=== PATIENT | male | born 1975 | race Caucasian/White ===

== ENCOUNTER 2019-02-12 19:31 | Inpatient (IN) | payer OTHER ==
[~2019-02-12] VITALS: Ht 167.6 cm; Wt 54.0 kg
[~2019-02-12 19:31] MED LIST: AMLO5TAB4 PO; FOLI-49 PO; METO10TA92 PO; POTA-57 PO; TRA100 PO
[2019-02-12 22:03] VITALS: Ht 167.6 cm; Wt 54.0 kg
[2019-02-12 22:30] VITALS: BP 135/93; PULSE 106; RESP 20
[2019-02-12] MEDS ORDERED: ONDANSETRON 4 MG INJ IV PRN (23:30)
[2019-02-12] MEDS ORDERED: POTASSIUM CHLORIDE 100 ML IVPB SCH (23:30)
[2019-02-12] MEDS ORDERED: ACETAMINOPHEN 325 MG TAB PO PRN (23:30)
[2019-02-13] MEDS: HYDROCODONE/APAP (5/325) TAB PO PRN ×5 (00:03→23:02)
[2019-02-13] MEDS: LORAZEPAM 2 MG INJ IV PRN ×4 (00:04→23:02)
[2019-02-13] MEDS ORDERED: POTASSIUM CHLORIDE (SR) 20 MEQ TAB PO STA ×3 (00:47→08:56)
[2019-02-13 03:35] VITALS: BP 146/100; PULSE 94; RESP 20
[2019-02-13] MEDS: PANTOPRAZOLE (EC) 40 MG TAB PO SCH (05:25)
[2019-02-13 07:19] VITALS: BP 137/83; PULSE 94; RESP 20
[2019-02-13] MEDS ORDERED: MULTIVITAMINS 10 ML, THIAMINE 100 MG, FOLIC ACID 1 MG in SOD CHLORIDE 0.9% 1,000 ML IVPB SCH (09:00)
[2019-02-13] MEDS: NICOTINE (21 MG/24 HR) PATCH TRANSDERM SCH (09:48)
[2019-02-13] MEDS: CHLORDIAZEPOXIDE 25 MG CAP PO SCH ×3 (09:48→20:54)
[2019-02-13] MEDS: THIAMINE 100 MG TAB PO SCH (09:49)
[2019-02-13] MEDS: FOLIC ACID 1 MG TAB PO SCH (09:49)
[2019-02-13] MEDS: POTASSIUM CHLORIDE 100 ML IVPB SCH ×4 (09:49→23:00)
[2019-02-13] MEDS: MULTIVITAMINS 10 ML, THIAMINE 100 MG, FOLIC ACID 1 MG in SOD CHLORIDE 0.9% 1,000 ML IVPB SCH (10:10)
[2019-02-13 11:06] VITALS: BP 149/103; PULSE 94; RESP 20
--- NOTE | 2019-02-13 12:53 | QN ---
Documentation Comment pt seen and examined BECKY LOMBARDI MD Feb 13, 2019 12:53
[2019-02-13 15:18] VITALS: BP 144/97; PULSE 94; RESP 20
[2019-02-13] MEDS ORDERED: MAGNESIUM SULFATE 4 GM/100 ML 100 ML IVPB ONE (17:30)
[2019-02-13] MEDS: MAGNESIUM OXIDE 400 MG TAB PO SCH (17:44)
[2019-02-13 19:45] VITALS: BP 140/97; PULSE 84; RESP 20
--- NOTE | 2019-02-13 20:37 | HP ---
DATE OF ADMISSION: 02/12/2019 REASON FOR ADMISSION: Transferred from [facility] due to hypokalemia and alcoholism. HISTORY OF PRESENT ILLNESS: This is a 43-year-old male who lives in his car, was sent in from [facility] secondary to hypokalemia. According to the patient, he had a history of alcohol abuse for many years. He claims that he has drank alcohol throughout his life, drinks 1 pint of vodka every day. He has had 3 alcohol withdrawal seizures. According to him, he had a seizure on this last Monday and after that he fell on his right shoulder and right side. He was feeling weak, tired. He also had some episodes of diarrhea and went to [facility] for further evaluation. There, patient had a potassium that was 2.4, sodium of 147. UA was normal, showed 6 to 10 WBCs. ETOH levels were 464. The patient had an x-ray of the clavicle that showed nondisplaced right david fracture. Potassium was 2.4. EKG did not show any hyperkalemic changes. The patient was given IV hydration, IV KCl, and was transferred to [facility] due to insurance reasons. PAST MEDICAL HISTORY: 1. History of alcohol abuse. 2. Smoking. 3. Hypertension. ALLERGIES: KETOROLAC AND THALLIUM. PAST SURGICAL HISTORY: NONE. SOCIAL HISTORY: The patient drinks about almost 1 pint of vodka every day, has done throughout his life. Also, has 1 packet of cigarette day. Denies any recreational drug use. The patient lives in his car. Does not believe in AA groups. PHYSICAL EXAMINATION: VITAL SIGNS: Currently, blood pressure 149/103, afebrile, heart rate is 94, respirations 20. GENERAL: The patient is awake, alert, oriented, does not appear to in any acute distress, mildly tremulous. HEENT: Pupils equal, round, reactive to light. NECK: Supple. HEART: Regular rate, rhythm. LUNGS: Clear to auscultate bilaterally. ABDOMEN: Soft, some tenderness present in the epigastric region. EXTREMITIES: No clubbing, cyanosis, or edema. The patient has bruises on the right hip and also on the right shoulder. LABORATORY DATA: Here showed sodium of 142, potassium 2.8, chloride 98, bicarbonate 31, BUN of 3, creatinine 0.43. White count of 7, hemoglobin 11.6, platelet count 264. The patient had an x-ray of the clavicle that showed nondisplaced right clavicle fracture. No change from 02/05/2019. EKG did not show any changes. ASSESSMENT AND PLAN: This is a 43-year-old male who presented with: 1. Severe hypokalemia, likely secondary to dehydration, diarrhea. 2. Ethanol intoxication. Monitor for withdrawal. Currently, the patient is mildly tremulous. Ethanol levels were 460. 3. Right clavicle fracture status post fall, seizure. 4. Multiple bruises on the right hip, right shoulder, status post fall. 5. History of alcohol withdrawal seizure. 6. Hypertension. PLAN: At this period of time, the patient is admitted to tele. The patient will be on Ativan and Librium. We will start the patient also on banana bag, thiamine, folic acid, PPI. Potassium will be aggressively repleted. We will repeat the potassium again. Smoking cessation, nicotine patch. We will also get x-rays of the right hip and CT of the head. The rest of the treatment depends on the patient's hospitalization course. Dictated By: BECKY GARCIA/LESLY Conf#: [id number] DID#: [id number] MARTIR
[2019-02-13] MEDS ORDERED: traZODone 100 MG TAB PO SCH (22:00)
[2019-02-14] VITALS: BP 145/97; PULSE 78; RESP 20
[2019-02-14] MEDS ORDERED: POTASSIUM CHLORIDE (SR) 20 MEQ TAB PO SCH
[2019-02-14] MEDS: LORAZEPAM 2 MG INJ IV PRN ×4 (02:14→17:19)
[2019-02-14 04:00] VITALS: BP 126/85; PULSE 82; RESP 18
[2019-02-14] MEDS: PANTOPRAZOLE (EC) 40 MG TAB PO SCH (05:46)
[2019-02-14] MEDS: HYDROCODONE/APAP (5/325) TAB PO PRN ×2 (05:47→12:54)
[2019-02-14 07:22] VITALS: BP 123/76; PULSE 70; RESP 18
[2019-02-14] MEDS: NICOTINE (21 MG/24 HR) PATCH TRANSDERM SCH (09:11)
[2019-02-14] MEDS: CHLORDIAZEPOXIDE 25 MG CAP PO SCH ×2 (09:12→12:54)
[2019-02-14] MEDS: MAGNESIUM OXIDE 400 MG TAB PO SCH (09:12)
[2019-02-14] MEDS: THIAMINE 100 MG TAB PO SCH (09:14)
[2019-02-14] MEDS: FOLIC ACID 1 MG TAB PO SCH (09:14)
[2019-02-14] MEDS: MULTIVITAMINS 10 ML, THIAMINE 100 MG, FOLIC ACID 1 MG in SOD CHLORIDE 0.9% 1,000 ML IVPB SCH (09:15)
[2019-02-14 11:04] VITALS: BP 143/91; PULSE 69; RESP 18
[2019-02-14 15:12] VITALS: BP 118/83; PULSE 84; RESP 19
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
--- NOTE | 2019-02-16 07:57 | DS ---
DATE OF ADMISSION: 02/12/2019 DATE OF DISCHARGE: 02/14/2019 The patient left AMA. HISTORY OF PRESENT ILLNESS AND HOSPITAL COURSE: This is a 43-year-old who lives in the car was sent in from the [facility] secondary to hypokalemia. According to the patient, he has history o f alcohol abuse, many years, claimed that he had drank alcohol throughout his life. Drinks 1 pint of vodka every day. He had 3 alcohol withdrawal seizures before. He had a seizure on this Monday. Af ter that, he fell on his right shoulder, right side. He was also feeling weak and tired. He had kenny e diarrhea and went to [facility] for further evaluation. Patient had potassium of 2.4, sod ium 147, BUN and creatinine within normal limit. ETOH level of 464. The patient's potassium was 2.4 , so he was sent in for IV potassium replacement and possible alcohol withdrawal. The patient was tr eated with IV potassium aggressively and was also kept on Librium and Ativan. The patient had a CT o f the head which was negative. Had right shoulder x-ray that showed mildly displaced fracture of the right distal clavicle. Also, had a right hip x-ray. The patient was feeling much better. Potassiu m got improved to 4.2; however, the patient mag was 1.0, which was repleted; however, the patient lef t AMA. Dictated By: BECKY GARCIA/LESLY Conf#: [id number] DID#: [id number]
== END 2019-02-14 19:00 | disposition left against medical advice (07) | DRG 894 ==
LOC: TEL 22:03
PROVIDERS: ADMIT Internal Medicine; ATTEND Internal Medicine
DX: F10.239 Alcohol dependence with withdrawal, unspecified (principal); G40.509 Epileptic seizures related to external causes, not intractable, without status epilepticus; E87.6 Hypokalemia; F17.200 Nicotine dependence, unspecified, uncomplicated; S42.001A Fracture of unspecified part of right clavicle, initial encounter for closed fracture; I10 Essential (primary) hypertension; S70.01XA Contusion of right hip, initial encounter; S40.011A Contusion of right shoulder, initial encounter; W18.30XA Fall on same level, unspecified, initial encounter; Z59.0 Homelessness
CPT/HCPCS: 70450; 73510; 80048; 80076; 80307; 83735; 84100; 84132; 85025; 85610; 87081; J2060; J2405; J3411; J3480; J7030

== ENCOUNTER 2019-03-30 19:02 | Inpatient (IN) | payer OTHER ==
[~2019-03-30] VITALS: Ht 167.6 cm; Wt 53.4 kg
[~2019-03-30 19:02] MED LIST changes: +CIPR-193 PO; +FAMO20TA18 PO; +HYDR-4012 PO; +LORA-444 PO; +Nicotine (14 Mg/24 Hr) TRANSDERM
[2019-03-30 23:30] VITALS: Ht 167.6 cm; Wt 53.4 kg
[2019-03-31] MEDS ORDERED: ONDANSETRON 4 MG INJ IV PRN (01:30)
[2019-03-31] MEDS ORDERED: CALCIUM CARBONATE 500 MG CHEW TAB PO PRN (01:30)
[2019-03-31] MEDS: HYDROCODONE/APAP (7.5/325) TAB PO PRN ×3 (01:35→18:12)
[2019-03-31] MEDS: LORAZEPAM 2 MG INJ IV PRN ×2 (02:53→18:12)
[2019-03-31] MEDS: PANTOPRAZOLE (EC) 40 MG TAB PO SCH (07:03)
[2019-03-31 07:27] VITALS: BP 159/102; PULSE 72; RESP 19
[2019-03-31 08:00] VITALS: PULSE 77
[2019-03-31] MEDS ORDERED: POTASSIUM CHLORIDE (SR) 20 MEQ TAB PO STA (08:04)
[2019-03-31] MEDS: POTASSIUM CHLORIDE 100 ML IVPB SCH ×2 (08:30→10:30)
[2019-03-31 11:28] VITALS: BP 156/99; PULSE 82; RESP 22
[2019-03-31 12:00] VITALS: PULSE 83
[2019-03-31] MEDS ORDERED: HYDROCODONE/APAP (5/325) TAB PO PRN (13:30)
[2019-03-31] MEDS: SOD CHLORIDE 0.9% 1,000 ML IV SCH (14:27)
[2019-03-31] MEDS: FOLIC ACID 1 MG TAB PO SCH (14:28)
[2019-03-31] MEDS: LOSARTAN 50 MG TAB PO SCH (14:28)
[2019-03-31] MEDS: THIAMINE 100 MG TAB PO SCH (14:28)
[2019-03-31] MEDS: NICOTINE (14 MG/24 HR) PATCH TRANSDERM SCH (14:29)
[2019-03-31] MEDS: ENOXAPARIN 40 MG/0.4 ML SYG SC SCH (14:41)
[2019-03-31 15:12] VITALS: BP 136/90; PULSE 80; RESP 20
[2019-03-31 19:55] VITALS: BP 128/83; PULSE 89; RESP 18
[2019-03-31] MEDS: traZODone 50 MG TAB PO SCH (21:12)
[2019-03-31] MEDS: VALPROIC ACID LIQUID CUP 250 MG/5 ML CUP PO SCH (21:14)
[2019-04-01] MEDS: LORAZEPAM 2 MG INJ IV PRN ×4 (00:11→20:24)
[2019-04-01] MEDS: HYDROCODONE/APAP (7.5/325) TAB PO PRN ×4 (00:11→19:47)
[2019-04-01] MEDS: PANTOPRAZOLE (EC) 40 MG TAB PO SCH (06:57)
[2019-04-01 07:48] VITALS: BP 140/88; PULSE 93; RESP 20
[2019-04-01] MEDS: NICOTINE (14 MG/24 HR) PATCH TRANSDERM SCH (08:36)
[2019-04-01] MEDS: THIAMINE 100 MG TAB PO SCH (08:37)
[2019-04-01] MEDS: VALPROIC ACID LIQUID CUP 250 MG/5 ML CUP PO SCH ×2 (08:37→20:37)
[2019-04-01] MEDS: LOSARTAN 50 MG TAB PO SCH (08:38)
[2019-04-01] MEDS: FOLIC ACID 1 MG TAB PO SCH (08:38)
[2019-04-01] MEDS: ENOXAPARIN 40 MG/0.4 ML SYG SC SCH (09:12)
[2019-04-01] MEDS: POTASSIUM CHLORIDE 100 ML IVPB SCH ×2 (10:00→12:00)
[2019-04-01] MEDS ORDERED: POTASSIUM CHLORIDE (SR) 20 MEQ TAB PO STA (11:01)
[2019-04-01] MEDS: SOD CHLORIDE 0.9% 1,000 ML IV SCH ×2 (11:11→18:29)
[2019-04-01 15:20] VITALS: BP 177/104; RESP 20
[2019-04-01 18:30] VITALS: BP 160/96; PULSE 78; RESP 16
[2019-04-01 20:32] VITALS: BP 149/95; PULSE 82; RESP 19
[2019-04-02] MEDS: traZODone 50 MG TAB PO SCH (01:03)
[2019-04-02] MEDS: HYDROCODONE/APAP (7.5/325) TAB PO PRN ×3 (01:45→15:49)
[2019-04-02] MEDS: LORAZEPAM 2 MG INJ IV PRN ×3 (02:25→16:25)
[2019-04-02 02:44] VITALS: BP 173/95; PULSE 77; RESP 20
[2019-04-02] MEDS: PANTOPRAZOLE (EC) 40 MG TAB PO SCH (06:10)
[2019-04-02 08:09] VITALS: BP 142/93; PULSE 82; RESP 18
[2019-04-02] MEDS: VALPROIC ACID LIQUID CUP 250 MG/5 ML CUP PO SCH (09:41)
[2019-04-02] MEDS: THIAMINE 100 MG TAB PO SCH (09:41)
[2019-04-02] MEDS: NICOTINE (14 MG/24 HR) PATCH TRANSDERM SCH (09:42)
[2019-04-02] MEDS: FOLIC ACID 1 MG TAB PO SCH (09:42)
[2019-04-02] MEDS: LOSARTAN 50 MG TAB PO SCH (09:42)
[2019-04-02] MEDS: ENOXAPARIN 40 MG/0.4 ML SYG SC SCH (09:46)
[2019-04-02] MEDS ORDERED: MAGNESIUM OXIDE 400 MG TAB PO ONE (13:00)
[2019-04-02 14:22] VITALS: BP 167/88; PULSE 71; RESP 18
[2019-04-02] MEDS ORDERED: hydrALAzine 20 MG INJ IV ONE (15:30)
[2019-04-02 15:51] VITALS: BP 148/78; PULSE 70
[2019-04-02] MEDS ORDERED: BALSAM PERU/CASTOR OIL 60 GM TUBE TOP SCH (21:00)
== END 2019-04-02 17:02 | disposition home or self-care (01) | DRG 641 ==
LOC: 6WM 23:09 → PP2 04-01 17:55
PROVIDERS: ADMIT Internal Medicine; ATTEND Internal Medicine
DX: E87.6 Hypokalemia (principal); T67.0XXA Heatstroke and sunstroke, initial encounter; E46 Unspecified protein-calorie malnutrition; Z68.1 Body mass index [BMI] 19.9 or less, adult; R65.10 Systemic inflammatory response syndrome (SIRS) of non-infectious origin without acute organ dysfunction; E86.0 Dehydration; R10.9 Unspecified abdominal pain; Z59.0 Homelessness; X58.XXXA Exposure to other specified factors, initial encounter; Z91.14 Patient's other noncompliance with medication regimen; F10.10 Alcohol abuse, uncomplicated; I10 Essential (primary) hypertension; F32.9 Major depressive disorder, single episode, unspecified; R19.7 Diarrhea, unspecified; K59.00 Constipation, unspecified
CPT/HCPCS: 80048; 80307; 81003; 83540; 83735; 84100; 84132; 85025; 87075; J0360; J1650; J2060; J3480; J7030